=== PATIENT | male | born 1935 | race American Indian/Alaskan Native ===

== ENCOUNTER 2017-10-22 11:42 | Inpatient (IN) | payer MEDICARE ==
--- NOTE | 2017-10-22 12:33 | ED PDOC ---
HPI: Trauma/Fall - HPI Time Seen by Provider: 10/22/17 12:14 Chief Complaint (Nursing): Trauma Chief Complaint (Provider): Fall History Per: Patient History/Exam Limitations: no limitations Onset/Duration Of Symptoms: Days (x1) Injury Occurred (Timing): Just Before Arrival Additional Complaint(s): 82-year-old male presenting for evaluation s/p slip and fall in bathtub prior to arrival. Patient states he does not remember everything that happened, but he does not think he hit his head or suffer LOC. Patient's daughter in law states she called him at 0830 to pick him up for a doctor's appointment. She states she arrived at 0930 and the patient was not answering. She states the patient was found in the bathtube on both his knees and awake. Patient denies any complaints at this time. PMD: Non-[facility] Provider Past Medical History Reviewed: Historical Data, Nursing Documentation, Vital Signs Vital Signs: Last Vital Signs Temp 98.4 F 10/22/17 12:09 Pulse 88 10/22/17 12:11 Resp 18 10/22/17 12:09 BP 115/72 10/22/17 12:09 Pulse Ox 97 10/22/17 12:09 - Medical History PMH: No Chronic Diseases - Surgical History Surgical History: No Surg Hx - Family History Family History: States: Unknown Family Hx - Allergies Allergies/Adverse Reactions: Allergies Allergy/AdvReac Type Severity Reaction Status Date / Time No Known Allergies Allergy Verified 10/22/17 11:58 Review of Systems ROS Statement: Except As Marked, All Systems Reviewed And Found Negative Physical Exam - Reviewed Nursing Documentation Reviewed: Yes Vital Signs Reviewed: Yes - Physical Exam Appears: Positive for: Non-toxic, No Acute Distress Head Exam: Positive for: ATRAUMATIC, NORMAL INSPECTION, NORMOCEPHALIC Skin: Positive for: Normal Color, Warm, Dry. Negative for: Rash Eye Exam: Positive for: EOMI, Normal appearance, PERRL ENT: Positive for: Normal ENT Inspection Neck: Positive for: Normal, Painless ROM, Supple Cardiovascular/Chest: Positive for: Regular Rate, Rhythm. Negative for: Murmur Respiratory: Positive for: Normal Breath Sounds. Negative for: Respiratory Distress Gastrointestinal/Abdominal: Positive for: Normal Exam, Soft. Negative for: Tenderness Back: Positive for: Normal Inspection. Negative for: L CVA Tenderness, R CVA Tenderness, Vertebral Tenderness Extremity: Positive for: Normal ROM, Other (minimal tenderness to bilateral knees, full ROM, no ecchymosis, no deformity). Negative for: Deformity Neurologic/Psych: Positive for: Alert, Oriented (x2). Negative for: Motor/ Sensory Deficits - Laboratory Results Result Diagrams: 10/22/17 13:20 10/22/17 14:20 - ECG O2 Sat by Pulse Oximetry: 97 (RA) Pulse Ox Interpretation: Normal Medical Decision Making Medical Decision Making: Impression: Fall Plan: -CT Head w/o contrast -EKG -Troponin I -Urine dipstick -CBC -PTT/PT -CXR -X-Ray Bilateral Knees -X-Ray Pelvis 2 Views -Urinalysis -Reevaluation 13:17 Knee x-ray FINDINGS: BONES: Right Knee: Normal. No fracture. Left Knee: Normal. No fracture. JOINTS: Right Knee: Tricompartmental osteoarthritis. Lateral compartment chondrocalcinosis. No articular erosion. Left knee: Tricompartmental osteoarthritis. Lateral compartment chondrocalcinosis. No articular erosion. SOFT TISSUES: Right Knee: Normal. Left Knee: Normal. JOINT EFFUSION: Right Knee: None. Left Knee: None. OTHER FINDINGS: None. IMPRESSION: Bilateral tricompartmental osteoarthritis. No fracture. 13:18 Pelvis X-Ray FINDINGS: BONES: Pelvic Bones: Unremarkable. Hips: Grossly unremarkable. JOINTS: Sacroiliac Joints: Unremarkable. Pubic Symphysis: Unremarkable. OTHER FINDINGS: Degenerative disc disease multiple levels in the lower lumbar spine. IMPRESSION: No acute fracture. 13:19 CXR FINDINGS: LUNGS: Clear. PLEURA: No pneumothorax or pleural fluid seen. CARDIOVASCULAR: Normal heart size. Permanent pacemaker. No congestive change. OSSEOUS STRUCTURES: No significant abnormalities. VISUALIZED UPPER ABDOMEN: Normal. OTHER FINDINGS: None. IMPRESSION: No active disease. 14:[address] FINDINGS: HEMORRHAGE: No intracranial hemorrhage. 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 This mass measures roughly 3.0 by 2.2 x 3.7 cm. Nonspecific. Tissue diagnosis advised. Moderate diffuse age- appropriate atrophy. Mild patchy periventricular and deep white matter lucency consistent with chronic microvascular ischemic change. Dense bilateral basal ganglia calcification unchanged from prior examination. VENTRICLES: Unremarkable. No hydrocephalus. CALVARIUM: No fracture. PARANASAL SINUSES: Soft tissue density in anterior left ethmoid sinus may be related to the orbital /frontal sinus mass. Status post left medial antrectomy/uncinectomy. Chronic left maxillary sinusitis. Minimal chronic sphenoid sinusitis. MASTOID AIR CELLS: Unremarkable as visualized. No inflammatory changes. OTHER FINDINGS: None. 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 Atrophy and chronic white matter ischemic change. CT findings noted, [id number] states know mass in orbital region. Scribe Attestation: Documented by Yannick Mattson, acting as a scribe for Lanette Hoang MD. Provider Scribe Attestation: All medical record entries made by the Scribe were at my direction and personally dictated by me. I have reviewed the chart and agree that the record accurately reflects my personal performance of the history, physical exam, medical decision making, and the department course for this patient. I have also personally directed, reviewed, and agree with the discharge instructions and disposition. Disposition - Clinical Impression Clinical Impression: Syncope - Patient ED Disposition Is Patient to be Admitted: Yes - Disposition Disposition Time: 14:40 Condition: STABLE - Pt Status Changed To: Hospital Disposition Of: Observation - POA Present On Arrival: Falls Or Trauma
--- NOTE | 2017-10-22 13:20 | RAD ---
Date of service: 10/22/2017 PROCEDURE: Radiographs of the pelvis. HISTORY: Fall COMPARISON: None. FINDINGS: BONES: Pelvic Bones: Unremarkable. Hips: Grossly unremarkable. JOINTS: Sacroiliac Joints: Unremarkable. Pubic Symphysis: Unremarkable. OTHER FINDINGS: Degenerative disc disease multiple levels in the lower lumbar spine. IMPRESSION: No acute fracture.
--- NOTE | 2017-10-22 13:20 | RAD ---
Date of service: 10/22/2017 PROCEDURE: CHEST RADIOGRAPH, 1 VIEW HISTORY: Fall COMPARISON: 04/18/2010 FINDINGS: LUNGS: Clear. PLEURA: No pneumothorax or pleural fluid seen. CARDIOVASCULAR: Normal heart size. Permanent pacemaker. No congestive change. OSSEOUS STRUCTURES: No significant abnormalities. VISUALIZED UPPER ABDOMEN: Normal. OTHER FINDINGS: None. IMPRESSION: No active disease.
[2017-10-22 13:31] LABS: INR 1.6; PROTHROMBIN TIME 17.4 Seconds (9.8-13.1)
[2017-10-22 13:32] LABS: BASO % 0.5 % (0.0-2.0); EOS % 0.3 % (0.0-4.0); HEMOGLOBIN 12.7 g/dL (12.0-18.0); LYMPH # 0.3 K/uL (1.0-4.3); LYMPH % 4.2 % (20.0-40.0); MEAN CELL VOLUME 89.4 fl (80.0-94.0); MEAN CORPUSCULAR HEMOGLOBIN 29.4 pg (27.0-31.0); MEAN CORPUSCULAR HGB CONC 32.9 g/dL (33.0-37.0); MEAN PLATELET VOLUME 8.6 fl (7.2-11.7); MONO # 0.5 K/uL (0.0-0.8); MONO % 6.4 % (0.0-10.0); NEUT # 6.9 K/uL (1.8-7.0); NEUT % 88.6 % (50.0-75.0); NRBC % 0.1 % (0.0-0.0); PLATELET COUNT 203 K/uL (130-400); RBC 4.31 Mil/uL (4.40-5.90); WHITE BLOOD COUNT 7.8 K/uL (4.8-10.8)
[2017-10-22 13:34] LABS: PARTIAL THROMBOPLASTIN TIME 29.3 Seconds (25.6-37.1)
--- NOTE | 2017-10-22 14:25 | CT ---
Date of service: 10/22/2017 PROCEDURE: CT HEAD WITHOUT CONTRAST. HISTORY: Vertigo COMPARISON: 04/17/2010 TECHNIQUE: Axial computed tomography images were obtained through the head/brain without intravenous contrast. Radiation dose: Total exam DLP = 968.90 mGy-cm. This CT exam was performed using one or more of the following dose reduction techniques: Automated exposure control, adjustment of the mA and/or kV according to patient size, and/or use of iterative reconstruction technique. FINDINGS: HEMORRHAGE: No intracranial hemorrhage. 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 This mass measures roughly 3.0 by 2.2 x 3.7 cm. Nonspecific. Tissue diagnosis advised. Moderate diffuse age-appropriate atrophy. Mild patchy periventricular and deep white matter lucency consistent with chronic microvascular ischemic change. Dense bilateral basal ganglia calcification unchanged from prior examination. VENTRICLES: Unremarkable. No hydrocephalus. CALVARIUM: No fracture. PARANASAL SINUSES: Soft tissue density in anterior left ethmoid sinus may be related to the orbital/frontal sinus mass. Status post left medial antrectomy/uncinectomy. Chronic left maxillary sinusitis. Minimal chronic sphenoid sinusitis. MASTOID AIR CELLS: Unremarkable as visualized. No inflammatory changes. OTHER FINDINGS: None. 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 Atrophy and chronic white matter ischemic change.
[2017-10-22 14:33] LABS: ALB/GLOB RATIO 1.1 (1.0-2.1); ALBUMIN 4.3 g/dL (3.5-5.0); CALCIUM 9.2 mg/dL (8.4-10.2)
--- NOTE | 2017-10-22 14:46 | RAD ---
Date of service: 10/22/2017 PROCEDURE: Bilateral Knee Radiographs. HISTORY: Fall COMPARISON: None. FINDINGS: BONES: Right Knee: Normal. No fracture. Left Knee: Normal. No fracture. JOINTS: Right Knee: Tricompartmental osteoarthritis. Lateral compartment chondrocalcinosis. No articular erosion. Left knee: Tricompartmental osteoarthritis. Lateral compartment chondrocalcinosis. No articular erosion. SOFT TISSUES: Right Knee: Normal. Left Knee: Normal. JOINT EFFUSION: Right Knee: None. Left Knee: None. OTHER FINDINGS: None. IMPRESSION: Bilateral tricompartmental osteoarthritis. No fracture.
[2017-10-22 15:27] LABS: LYMPHOCYTE 6 % (20-50); MONOCYTE 9 % (0-10); NEUTROPHIL 85 % (42-75); PLATELET ESTIMATE NORMAL (NORMAL); TOTAL CELLS COUNTED 100
[2017-10-22 15:31] LABS: URINE BILIRUBIN NEGATIVE (NEGATIVE); URINE BLOOD SMALL (NEGATIVE); URINE CLARITY CLEAR (Clear); URINE COLOR YELLOW (YELLOW); URINE GLUCOSE (UA) 50 mg/dL (Normal); URINE HYALINE CAST 0-2 /hpf (0-2); URINE LEUKOCYTE ESTERASE NEG Leu/uL (Negative); URINE PROTEIN 100 mg/dL (NEGATIVE); URINE UROBILINOGEN 0.2-1.0 mg/dL (0.2-1.0)
[2017-10-22] MEDS: Metoprolol Succinate 100 mg XL Tab PO SCH (17:00)
--- NOTE | 2017-10-23 02:01 | CARD ---
APPROVED REPORT Date of service: 10/22/2017 <Conclusion> Wide QRS rhythm/ Possible accelerated junctional rhythm Right bundle branch block Inferior infarct, age undetermined Abnormal ECG
[2017-10-23 07:33] LABS: HDL CHOLESTEROL 37 MG/DL (30-70)
[2017-10-23 07:57] LABS: LDL CHOLESTEROL < 30 mg/dL (0-129)
[2017-10-23] MEDS: Enoxaparin 40 mg Syringe SC SCH (09:01)
[2017-10-23] MEDS: Metoprolol Succinate 100 mg XL Tab PO SCH (09:04)
[2017-10-23] MEDS: Ammonium Lactate 12% Cream (140 g) TOP SCH ×2 (10:15→19:05)
--- NOTE | 2017-10-23 10:19 | CP.PCM.CON ---
History of Present Illness - History of Present Illness History of Present Illness: Podiatry Consult Note for Dr. Whitten: 82 yo male, with PMHx of DM and HLD, seen and evaluated at bedside for b/l xerosis and dystrophic elongated nails. He notes that he fell in the bath tub yesterday and was brought to the hospital. Patient states that his nails are so long that he cannot cut them himself. They often cause pain in his shoes. He states that he does not see a gumming machine operator. He denies any other pedal complaints at this time. Denies N/V/F/SOB/CP. Review of Systems - Review of Systems Review of Systems: As per HPI Past Patient History - Past Medical History & Family History Past Medical History?: Yes - Past Social History Smoking Status: Never Smoked - CARDIAC Hx Cardiac Disorders: Yes Hx Hypercholesterolemia: Yes Hx Hypertension: Yes Other/Comment: Pacemaker - PULMONARY Hx Respiratory Disorders: No - NEUROLOGICAL Hx Neurological Disorder: No - HEENT Hx HEENT Problems: No - RENAL Hx Chronic Kidney Disease: No - ENDOCRINE/METABOLIC Hx Endocrine Disorders: Yes Hx Diabetes Mellitus Type 2: Yes - HEMATOLOGICAL/ONCOLOGICAL Hx Blood Disorders: No Hx AIDS: No Hx Human Immunodeficiency Virus (HIV): No - INTEGUMENTARY Hx Dermatological Problems: No - MUSCULOSKELETAL/RHEUMATOLOGICAL Hx Musculoskeletal Disorders: Yes Hx Falls: Yes - GASTROINTESTINAL Hx Gastrointestinal Disorders: No - GENITOURINARY/GYNECOLOGICAL Hx Genitourinary Disorders: Yes Other/Comment: scrotal edema - PSYCHIATRIC Hx Psychophysiologic Disorder: No Hx Substance Use: No - SURGICAL HISTORY Hx Surgeries: Yes Other/Comment: Pacemaker insertion - ANESTHESIA Hx Anesthesia: Yes Hx Anesthesia Reactions: No Hx Malignant Hyperthermia: No Has any member of the family had a problem w/ anesthesia?: No Meds Allergies/Adverse Reactions: Allergies Allergy/AdvReac Type Severity Reaction Status Date / Time No Known Allergies Allergy Verified 10/22/17 11:58 - Medications Medications: Current Medications Amlodipine Besylate (Norvasc) 2.5 mg PO DAILY [facility] Last Admin: 10/23/17 09:02 Dose: 2.5 mg Atorvastatin Calcium (Lipitor) 80 mg PO DAILY [facility] Last Admin: 10/23/17 09:02 Dose: 80 mg Doxazosin Mesylate (Cardura) 1 mg PO DAILY [facility] Last Admin: 10/23/17 09:04 Dose: 1 mg Enoxaparin Sodium (Lovenox) 40 mg SC DAILY [facility] PRN Reason: Protocol Last Admin: 10/23/17 09:01 Dose: 40 mg Escitalopram Oxalate (Lexapro) 10 mg PO DAILY [facility] Last Admin: 10/23/17 09:03 Dose: 10 mg Fenofibrate (Tricor) 48 mg PO DAILY [facility] Last Admin: 10/23/17 09:02 Dose: 48 mg Lactic Acid (Lac-Hydrin 12% Cream (140 G)) 0 ea TOP BID [facility] Lisinopril (Zestril) 40 mg PO DAILY [facility] Last Admin: 10/23/17 09:03 Dose: 40 mg Memantine (Namenda) 10 mg PO BID [facility] Last Admin: 10/23/17 09:03 Dose: 10 mg Metoprolol Succinate (Toprol Xl) 200 mg PO DAILY [facility] Last Admin: 10/23/17 09:04 Dose: 200 mg Tamsulosin HCl (Flomax) 0.4 mg PO HS [facility] Last Admin: 10/22/17 21:49 Dose: 0.4 mg Physical Exam - Constitutional Appears: Well, Non-toxic, No Acute Distress - Head Exam Head Exam: ATRAUMATIC, NORMOCEPHALIC - Extremities Exam Additional comments: B/L lower extremity exam: Vascular: DP 2/4 bilaterally, PT 1/4 bilaterally, CFT > 3 seconds to all 10 digits, no edema noted Ortho: Tenderness to palpation of elongated nails, MMT 4/5, hammertoe deformity of 2-4 bilaterally, HAV deformity bilaterally, pes planus bilaterally Neuro: Gross and protective sensation intact Derm: Elongated, dystrophic, onychogryphotic nails x8 with subungual debris. Xerosis noted to lower extremity extending from mid tibia down to dorsal aspect of feet bilterally. No interdigital maceration, no open lesions, no erythema, no clinical signs of infection - Neurological Exam Neurological exam: Alert - Psychiatric Exam Psychiatric exam: Normal Affect, Normal Mood Results - Vital Signs Recent Vital Signs: Last Vital Signs Temp 98.3 F 10/23/17 08:00 Pulse 75 10/23/17 09:04 Resp 20 10/23/17 08:00 BP 141/81 10/23/17 09:04 Pulse Ox 95 10/23/17 08:00 - Labs Result Diagrams: 10/22/17 13:20 10/22/17 14:20 Labs: Laboratory Results - last 24 hr 10/22/17 10/22/17 10/22/17 13:20 13:20 13:20 WBC 7.8 RBC 4.31 L Hgb 12.7 Hct 38.5 MCV 89.4 MCH 29.4 MCHC 32.9 L RDW 14.0 Plt Count 203 MPV 8.6 Neut % (Auto) 88.6 H Lymph % (Auto) 4.2 L [place] % (Auto) 6.4 Eos % (Auto) 0.3 Baso % (Auto) 0.5 Neut # (Auto) 6.9 Lymph # (Auto) 0.3 L [place] # (Auto) 0.5 Eos # (Auto) 0.0 Baso # (Auto) 0.0 Neutrophils % (Manual) 85 H Lymphocytes % (Manual) 6 L Monocytes % (Manual) 9 Platelet Estimate Normal PT 17.4 H INR 1.6 APTT 29.3 Sodium Potassium Chloride Carbon Dioxide Anion Gap BUN Creatinine Est GFR ( Amer) Est GFR (Non-Af Amer) Random Glucose Calcium Total Bilirubin AST ALT Alkaline Phosphatase Troponin I 0.1190 Total Protein Albumin Globulin Albumin/Globulin Ratio Triglycerides Cholesterol LDL Cholesterol Direct HDL Cholesterol TSH 3rd Generation Urine Color Urine Clarity Urine pH Ur Specific [place] Urine Protein Urine Glucose (UA) Urine Ketones Urine Blood Urine Nitrate Urine Bilirubin Urine Urobilinogen Ur Leukocyte Esterase Urine RBC (Auto) Urine Microscopic WBC Hyaline Casts 10/22/17 10/22/17 10/23/17 14:20 15:18 05:50 WBC RBC Hgb Hct MCV MCH MCHC RDW Plt Count MPV Neut % (Auto) Lymph % (Auto) [place] % (Auto) Eos % (Auto) Baso % (Auto) Neut # (Auto) Lymph # (Auto) [place] # (Auto) Eos # (Auto) Baso # (Auto) Neutrophils % (Manual) Lymphocytes % (Manual) Monocytes % (Manual) Platelet Estimate PT INR APTT Sodium 140 Potassium 4.5 Chloride 104 Carbon Dioxide 22 Anion Gap 19 BUN 21 H Creatinine 1.5 Est GFR ( Amer) 54 Est GFR (Non-Af Amer) 45 Random Glucose 121 H Calcium 9.2 Total Bilirubin 1.1 AST 67 H ALT 23 Alkaline Phosphatase 81 Troponin I Total Protein 8.2 Albumin 4.3 Globulin 3.9 Albumin/Globulin Ratio 1.1 Triglycerides 51 Cholesterol 81 LDL Cholesterol Direct < 30 HDL Cholesterol 37 TSH 3rd Generation 2.27 Urine Color Yellow Urine Clarity Clear Urine pH 6.0 Ur Specific [place] 1.016 Urine Protein 100 Urine Glucose (UA) 50 Urine Ketones Trace Urine Blood Small Urine Nitrate Negative Urine Bilirubin Negative Urine Urobilinogen 0.2-1.0 Ur Leukocyte Esterase Neg Urine RBC (Auto) 6 H Urine Microscopic WBC 3 Hyaline Casts 0-2 Assessment & Plan - Assessment and Plan (Free Text) Assessment: 82 yo male, with PMHx of DM and HLD, seen and evaluated at bedside for b/l xerosis and dystrophic elongated nails. Plan: Patient seen and evaluated with all questions and concerns addressed Patient discussed in detail with Dr. Whitten Chart, labs, and vitals reviewed; afebrile, absent leukocytosis Nails debrided x8 with a large nail nipper without incident Ammonium lactate lotion ordered and to be applied daily to bilateral lower extremities Podiatry to s/o at this time Thank you for the consult and allowing us to partake in the care of this patient - Date & Time Date: 10/23/17 Time: 10:19
--- NOTE | 2017-10-23 13:05 | US ---
Date of service: 10/23/2017 HISTORY: scrotal edema TECHNIQUE: Realtime sonography through the scrotum with color and doppler flow. COMPARISON: None Available. FINDINGS: RIGHT TESTICLE: Measures 2.9 x 2.5 x 3.9 cm. Homogeneous echotexture. No mass. Normal flow demonstrated. RIGHT EPIDIDYMIS: Not discretely appreciated. No epididymal mass. LEFT TESTICLE: Measures 4.8 x 2.9 x 3.8 cm. Homogeneous echotexture. No mass. Normal flow. LEFT EPIDIDYMIS: Not discretely appreciated. No epididymal mass. HYDROCELE: Extensive bilateral mildly complex hydrocele with low-level internal echoes. VARICOCELE: None. OTHER FINDINGS: None. IMPRESSION: Extensive bilateral mildly complex hydrocele. No evidence of epididymo-orchitis. Otherwise unremarkable.
--- NOTE | 2017-10-23 20:18 | CP.PCM.HP ---
History of Present Illness - History of Present Illness History of Present Illness: This is an 82 y/o male admitted after a fall with possible syncope. Patient had a fall at home and did not remember the events just prior to the event. He denies chest pain or dizziness prior to fall. Patient does not remember any of his medical conditons. He has been living alone and his immediate family visits him regularly Medical Hx gait dysfunction OA left periorbital mass [place] HTn Hyperlipidemia BPH Dementia Present on Admission - Present on Admission Any Indicators Present on Admission: No History of DVT/PE: No History of Uncontrolled Diabetes: No Urinary Catheter: No Decubitus Ulcer Present: No Review of Systems - Review of Systems Systems not reviewed;Unavailable: Dementia - Constitutional Constitutional: Frequent Falls - Musculoskeletal Musculoskeletal: Abnormal Gait, Arthralgias - Integumentary Integumentary: Change in Nails, Dry Skin Past Patient History - Past Medical History & Family History Past Medical History?: Yes - Past Social History Smoking Status: Never Smoked - CARDIAC Hx Cardiac Disorders: Yes Hx Hypercholesterolemia: Yes Hx Hypertension: Yes Other/Comment: Pacemaker - PULMONARY Hx Respiratory Disorders: No - NEUROLOGICAL Hx Neurological Disorder: No - HEENT Hx HEENT Problems: No - RENAL Hx Chronic Kidney Disease: No - ENDOCRINE/METABOLIC Hx Endocrine Disorders: Yes Hx Diabetes Mellitus Type 2: Yes - HEMATOLOGICAL/ONCOLOGICAL Hx Blood Disorders: No Hx AIDS: No Hx Human Immunodeficiency Virus (HIV): No - INTEGUMENTARY Hx Dermatological Problems: No - MUSCULOSKELETAL/RHEUMATOLOGICAL Hx Musculoskeletal Disorders: Yes Hx Falls: Yes - GASTROINTESTINAL Hx Gastrointestinal Disorders: No - GENITOURINARY/GYNECOLOGICAL Hx Genitourinary Disorders: Yes Other/Comment: scrotal edema - PSYCHIATRIC Hx Psychophysiologic Disorder: No Hx Substance Use: No - SURGICAL HISTORY Hx Surgeries: Yes Other/Comment: Pacemaker insertion - ANESTHESIA Hx Anesthesia: Yes Hx Anesthesia Reactions: No Hx Malignant Hyperthermia: No Has any member of the family had a problem w/ anesthesia?: No Meds Allergies/Adverse Reactions: Allergies Allergy/AdvReac Type Severity Reaction Status Date / Time No Known Allergies Allergy Verified 10/22/17 11:58 Physical Exam - Head Exam Head Exam: NORMAL INSPECTION - Eye Exam Eye Exam: Normal appearance - ENT Exam ENT Exam: Mucous Membranes Moist - Respiratory Exam Respiratory Exam: Clear to Auscultation Bilateral - Cardiovascular Exam Cardiovascular Exam: REGULAR RHYTHM - GI/Abdominal Exam GI & Abdominal Exam: Normal Bowel Sounds - Extremities Exam Additional comments: dry skin and thickened discolored elongated toenails - Neurological Exam Neurological exam: CN II-XII Intact - Psychiatric Exam Psychiatric exam: Flat Affect Results - Vital Signs Recent Vital Signs: Last Vital Signs Temp 98.0 F 10/23/17 17:17 Pulse 87 10/23/17 17:17 Resp 18 10/23/17 17:17 BP 124/87 10/23/17 17:17 Pulse Ox 97 10/23/17 17:17 - Labs Result Diagrams: 10/25/17 04:20 10/25/17 04:20 Labs: Laboratory Results - last 24 hr 10/23/17 10/23/17 05:50 05:50 Hemoglobin A1c 5.6 Triglycerides 51 Cholesterol 81 LDL Cholesterol Direct < 30 HDL Cholesterol 37 TSH 3rd Generation 2.27 Assessment & Plan (1) Syncope Status: Acute (2) Hypertension Status: Acute (3) Hyperlipidemia Status: Acute (4) Dementia Status: Acute (5) Dry skin dermatitis Status: Acute (6) Onychomycosis Status: Acute (7) Gait abnormality Status: Acute (8) Osteoarthritis Status: Acute - Assessment and Plan (Free Text) Plan: keep at telemetry cont meds lachydrin lotion Podiatery eval follow up Ct scan of the brains Phsy therapy
--- NOTE | 2017-10-23 20:21 | CP.PCM.PN ---
Subjective - Date & Time of Evaluation Date of Evaluation: 10/23/17 Time of Evaluation: 15:00 - Subjective Subjective: Patient is much more stable Stays mostly in bed, Seen by Podiatry Very forgetful Has god appetite and sleep Has no SOB or chest pain. Objective - Vital Signs/Intake and Output Vital Signs (last 24 hours): Temp Pulse Resp BP Pulse Ox 98.0 F 87 18 124/87 97 10/23/17 17:17 10/23/17 17:17 10/23/17 17:17 10/23/17 17:17 10/23/17 17:17 - Medications Medications: Current Medications Amlodipine Besylate (Norvasc) 2.5 mg PO DAILY [facility] Last Admin: 10/23/17 09:02 Dose: 2.5 mg Atorvastatin Calcium (Lipitor) 80 mg PO DAILY [facility] Last Admin: 10/23/17 09:02 Dose: 80 mg Doxazosin Mesylate (Cardura) 1 mg PO DAILY [facility] Last Admin: 10/23/17 09:04 Dose: 1 mg Enoxaparin Sodium (Lovenox) 40 mg SC DAILY [facility] PRN Reason: Protocol Last Admin: 10/23/17 09:01 Dose: 40 mg Escitalopram Oxalate (Lexapro) 10 mg PO DAILY [facility] Last Admin: 10/23/17 09:03 Dose: 10 mg Fenofibrate (Tricor) 48 mg PO DAILY [facility] Last Admin: 10/23/17 09:02 Dose: 48 mg Lactic Acid (Lac-Hydrin 12% Cream (140 G)) 0 ea TOP BID [facility] Last Admin: 10/23/17 19:05 Dose: 1 applic Lisinopril (Zestril) 40 mg PO DAILY [facility] Last Admin: 10/23/17 09:03 Dose: 40 mg Memantine (Namenda) 10 mg PO BID [facility] Last Admin: 10/23/17 19:05 Dose: 10 mg Metoprolol Succinate (Toprol Xl) 200 mg PO DAILY [facility] Last Admin: 10/23/17 09:04 Dose: 200 mg Tamsulosin HCl (Flomax) 0.4 mg PO HS [facility] Last Admin: 10/22/17 21:49 Dose: 0.4 mg - Labs Labs: 10/22/17 13:20 10/22/17 14:20 PT 17.4 Seconds (9.8-13.1) H 10/22/17 13:20 INR 1.6 10/22/17 13:20 APTT 29.3 Seconds (25.6-37.1) 10/22/17 13:20 - Head Exam Head Exam: NORMAL INSPECTION - Eye Exam Eye Exam: Normal appearance - ENT Exam ENT Exam: Mucous Membranes Moist - Respiratory Exam Respiratory Exam: Clear to Ausculation Bilateral - Cardiovascular Exam Cardiovascular Exam: REGULAR RHYTHM - GI/Abdominal Exam GI & Abdominal Exam: Normal Bowel Sounds Assessment and Plan (1) Syncope Status: Acute (2) Dementia Status: Acute (3) Dry skin dermatitis Status: Acute (4) Gait abnormality Status: Acute (5) Hyperlipidemia Status: Acute (6) Hypertension Status: Acute (7) Onychomycosis Status: Acute (8) Osteoarthritis Status: Acute - Assessment and Plan (Free Text) Plan: Cont meds Cont PT follow up Ct scan pain meds
[2017-10-24] MEDS: Enoxaparin 40 mg Syringe SC SCH (09:59)
[2017-10-24] MEDS: Omega-3-Acid Ethyl Esters 1 GM Cap PO SCH ×2 (09:59→16:12)
[2017-10-24] MEDS: Ammonium Lactate 12% Cream (140 g) TOP SCH ×2 (09:59→16:10)
[2017-10-24] MEDS: Metoprolol Succinate 100 mg XL Tab PO SCH (10:02)
[2017-10-24 14:26] LABS: HEMOGLOBIN 12.8 g/dL (12.0-18.0); MEAN CELL VOLUME 89.1 fl (80.0-94.0); MEAN CORPUSCULAR HEMOGLOBIN 29.4 pg (27.0-31.0); RBC 4.36 Mil/uL (4.40-5.90); RED CELL DISTRIBUTION WIDTH 13.9 % (11.5-14.5); WHITE BLOOD COUNT 10.9 K/uL (4.8-10.8)
--- NOTE | 2017-10-24 15:41 | CARD ---
APPROVED REPORT Date of service: 10/24/2017 EXAM: Two-dimensional and M-mode echocardiogram with Doppler and color Doppler. Other Information Quality : GoodFairRhythm : Pacemaker INDICATION Syncope 2D DIMENSIONS IVSd2.00 (0.7-1.1cm)LVDd3.40 (3.9-5.9cm) LVOT Diameter2.63 (1.8-2.4cm)PWd1.69 (0.7-1.1cm) IVSs2.16 (0.8-1.2cm)LVDs2.26 (2.5-4.0cm) FS (%) 27.5 %PWs2.25 (0.8-1.2cm) M-Mode DIMENSIONS Left Atrium (MM)5.16 (2.5-4.0cm)IVSd1.52 (0.7-1.1cm) Aortic Root4.00 (2.2-3.7cm)LVDd4.90 (4.0-5.6cm) Aortic Cusp Exc.2.32 (1.5-2.0cm)PWd1.46 (0.7-1.1cm) IVSs1.65 cmFS (%) 35 % LVDs3.18 (2.0-3.8cm)PWs2.48 cm Aortic Valve AoV Peak Vjsfwjgo34.6cm/sAoV VTI15.4cmAO Peak GR.4mmHg LVOT Peak Awkmpicj65.2cm/sLVOT VTI9.75cmAO Mean GR.2mmHg ANGEL (VMAX)1.45fp9RQH (VTI)1.50cm2 Mitral Valve MV E Guevhgrc36.0cm/sMV DECEL BILO990mvIS A Ajclqfnq34.4cm/s MV WKH03bsB/A ratio3.9MVA (PHT)4.36cm2 TDI E/Lateral E'0.0E/Medial E'0.0 Pulmonary Valve PV Peak Awgziiot00.6cm/s Tricuspid Valve TR Peak Nojkufnk668th/sRAP UGXGVLVW68byJwOH Peak Gr.26mmHg IVVZ32kwLu LEFT VENTRICLE The left ventricle is normal size. There is moderate concentric left ventricular hypertrophy. There is moderate global LV systolic dysfunction The Ejection Fraction is 40-45%. No regional wall motion abnormalities noted.. The left ventricular diastolic function is normal. No left ventricle thrombus noted on this study. There is no ventricular septal defect visualized. There is no mass noted in the left ventricle. RIGHT VENTRICLE The right ventricle is normal size. There is normal right ventricular wall thickness. The right ventricular systolic function is normal. No subcostal views to determine if RA pacemaker lead present, but likely is ATRIA The left atrium size is moderately dilated The right atrium size is normal. RA pacemaker lead present AORTIC VALVE The aortic valve is normal in structure. Mild sclerosis Mild aortic regurgitation is present. There is no aortic valvular stenosis. MITRAL VALVE The mitral valve is normal in structure. There is no mitral valve stenosis. There is mild mitral valve regurgitation noted. TRICUSPID VALVE The tricuspid valve is normal in structure. There is mild tricuspid valve regurgitation noted. Mild pulmonary hypertension PULMONIC VALVE The pulmonary valve is normal in structure. There is mild pulmonic valvular regurgitation. GREAT VESSELS The aortic root is mildly dilated The pulmonary artery is normal. The IVC is not seen PERICARDIAL EFFUSION There is no pericardial effusion. <Conclusion> No subcostal views Dilated aortic root with mild insufficiency Mild mitral insufficiency Mild TR/PI with mild pulmonary hypertension Dilated left atrium Moderate LVH Moderate global LV systolic dysfunction Probable right heart pacemaker leads The Ejection Fraction is 40-45%.
[2017-10-24] MEDS: Sodium Chloride 0.9% 1,000 ML IV SCH (17:40)
[2017-10-25 05:48] LABS: HEMOGLOBIN 12.1 g/dL (12.0-18.0); MEAN CELL VOLUME 88.6 fl (80.0-94.0); MEAN CORPUSCULAR HEMOGLOBIN 29.2 pg (27.0-31.0); RBC 4.13 Mil/uL (4.40-5.90); WHITE BLOOD COUNT 11.3 K/uL (4.8-10.8)
[2017-10-25] MEDS: Sodium Chloride 0.9% 1,000 ML IV SCH (06:00)
[2017-10-25 06:02] LABS: ALBUMIN 3.7 g/dL (3.5-5.0); CALCIUM 9.1 mg/dL (8.4-10.2)
[2017-10-25 08:01] VITALS: RESP 20
[2017-10-25] MEDS: Ammonium Lactate 12% Cream (140 g) TOP SCH ×2 (08:59→17:56)
[2017-10-25] MEDS: Omega-3-Acid Ethyl Esters 1 GM Cap PO SCH ×2 (09:00→17:56)
[2017-10-25] MEDS: Enoxaparin 40 mg Syringe SC SCH (09:00)
[2017-10-25] MEDS: Metoprolol Succinate 100 mg XL Tab PO SCH (09:01)
--- NOTE | 2017-10-25 10:47 | CP.PCM.PN ---
Subjective - Date & Time of Evaluation Date of Evaluation: 10/24/17 Time of Evaluation: 11:00 - Subjective Subjective: patient continues to do well Has no chest pain or SOB Afebrile has no fever. 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 Objective - Vital Signs/Intake and Output Vital Signs (last 24 hours): Temp Pulse Resp BP Pulse Ox 98.5 F 88 20 138/78 96 10/25/17 08:00 10/25/17 09:01 10/25/17 08:00 10/25/17 09:01 10/25/17 08:00 - Medications Medications: Current Medications Amlodipine Besylate (Norvasc) 2.5 mg PO DAILY [facility] Last Admin: 10/25/17 09:00 Dose: 2.5 mg Atorvastatin Calcium (Lipitor) 20 mg PO HS [facility] Last Admin: 10/24/17 21:41 Dose: 20 mg Doxazosin Mesylate (Cardura) 1 mg PO DAILY [facility] Last Admin: 10/25/17 09:01 Dose: 1 mg Enoxaparin Sodium (Lovenox) 40 mg SC DAILY [facility] PRN Reason: Protocol Last Admin: 10/25/17 09:00 Dose: 40 mg Escitalopram Oxalate (Lexapro) 10 mg PO DAILY [facility] Last Admin: 10/25/17 09:01 Dose: 10 mg Sodium Chloride (Sodium Chloride 0.9%) 1,000 mls @ 80 mls/hr IV .[id number] [facility] Stop: 10/25/17 17:13 Last Admin: 10/25/17 06:00 Dose: 80 mls/hr Lactic Acid (Lac-Hydrin 12% Cream (140 G)) 0 ea TOP BID [facility] Last Admin: 10/25/17 08:59 Dose: 1 applic Lisinopril (Zestril) 40 mg PO DAILY [facility] Last Admin: 10/25/17 08:59 Dose: 40 mg Memantine (Namenda) 10 mg PO BID [facility] Last Admin: 10/25/17 09:00 Dose: 10 mg Metoprolol Succinate (Toprol Xl) 200 mg PO DAILY [facility] Last Admin: 10/25/17 09:01 Dose: 200 mg Hovzd-2-Xbxm Ethyl Esters (Lovaza) 2 gm PO BID [facility] Last Admin: 10/25/17 09:00 Dose: 2 gm Tamsulosin HCl (Flomax) 0.4 mg PO HS [facility] Last Admin: 10/24/17 21:41 Dose: 0.4 mg - Labs Labs: 10/25/17 04:20 10/25/17 04:20 PT 17.4 Seconds (9.8-13.1) H 10/22/17 13:20 INR 1.6 10/22/17 13:20 APTT 29.3 Seconds (25.6-37.1) 10/22/17 13:20 - Head Exam Head Exam: NORMAL INSPECTION - Eye Exam Eye Exam: Normal appearance - ENT Exam ENT Exam: Mucous Membranes Moist - Respiratory Exam Respiratory Exam: Clear to Ausculation Bilateral - Cardiovascular Exam Cardiovascular Exam: REGULAR RHYTHM - GI/Abdominal Exam GI & Abdominal Exam: Normal Bowel Sounds Assessment and Plan (1) Syncope Status: Acute (2) Dementia Status: Acute (3) Dry skin dermatitis Status: Acute (4) Gait abnormality Status: Acute (5) Hyperlipidemia Status: Acute (6) Hypertension Status: Acute (7) Onychomycosis Status: Acute (8) Osteoarthritis Status: Acute - Assessment and Plan (Free Text) Plan: Cont meds Cont tx Cont PT regular floor
--- NOTE | 2017-10-25 10:48 | CP.PCM.PN ---
Subjective - Date & Time of Evaluation Date of Evaluation: 10/25/17 Time of Evaluation: 10:47 - Subjective Subjective: patient remains stable Has no chest pain or SOB afebrile Objective - Vital Signs/Intake and Output Vital Signs (last 24 hours): Temp Pulse Resp BP Pulse Ox 98.5 F 88 20 138/78 96 10/25/17 08:00 10/25/17 09:01 10/25/17 08:00 10/25/17 09:01 10/25/17 08:00 - Medications Medications: Current Medications Amlodipine Besylate (Norvasc) 2.5 mg PO DAILY [facility] Last Admin: 10/25/17 09:00 Dose: 2.5 mg Atorvastatin Calcium (Lipitor) 20 mg PO HS [facility] Last Admin: 10/24/17 21:41 Dose: 20 mg Doxazosin Mesylate (Cardura) 1 mg PO DAILY [facility] Last Admin: 10/25/17 09:01 Dose: 1 mg Enoxaparin Sodium (Lovenox) 40 mg SC DAILY [facility] PRN Reason: Protocol Last Admin: 10/25/17 09:00 Dose: 40 mg Escitalopram Oxalate (Lexapro) 10 mg PO DAILY [facility] Last Admin: 10/25/17 09:01 Dose: 10 mg Sodium Chloride (Sodium Chloride 0.9%) 1,000 mls @ 80 mls/hr IV .[id number] [facility] Stop: 10/25/17 17:13 Last Admin: 10/25/17 06:00 Dose: 80 mls/hr Lactic Acid (Lac-Hydrin 12% Cream (140 G)) 0 ea TOP BID [facility] Last Admin: 10/25/17 08:59 Dose: 1 applic Lisinopril (Zestril) 40 mg PO DAILY [facility] Last Admin: 10/25/17 08:59 Dose: 40 mg Memantine (Namenda) 10 mg PO BID [facility] Last Admin: 10/25/17 09:00 Dose: 10 mg Metoprolol Succinate (Toprol Xl) 200 mg PO DAILY [facility] Last Admin: 10/25/17 09:01 Dose: 200 mg Sskon-5-Jrvv Ethyl Esters (Lovaza) 2 gm PO BID [facility] Last Admin: 10/25/17 09:00 Dose: 2 gm Tamsulosin HCl (Flomax) 0.4 mg PO HS [facility] Last Admin: 10/24/17 21:41 Dose: 0.4 mg - Labs Labs: 10/25/17 04:20 10/25/17 04:20 PT 17.4 Seconds (9.8-13.1) H 10/22/17 13:20 INR 1.6 10/22/17 13:20 APTT 29.3 Seconds (25.6-37.1) 10/22/17 13:20 Assessment and Plan (1) Syncope Status: Acute (2) Dementia Status: Acute (3) Dry skin dermatitis Status: Acute (4) Gait abnormality Status: Acute (5) Hyperlipidemia Status: Acute (6) Hypertension Status: Acute (7) Onychomycosis Status: Acute (8) Osteoarthritis Status: Acute
--- NOTE | 2017-10-25 12:55 | PQF ---
PROVIDER RESPONSE TEXT: Unable to determine REVIEWER QUERY TEXT: Clarification of Clinical Diagnostic Findings Etiology of Syncope? 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 Atrophy and chronic white matter ischemic change 10/22: Observation order: Admitting diagnosis: Syncope -> Admission to Inpatient Telemetry: Admitting diagnosis: Syncope H and P: This is an 82 y/o male admitted after a fall with possible syncope. Patient had a fall at [facility] and did not remember the events just prior to the event. The patient's Clinical Indicators include: XX Query created by: Rea Pike on 10/24/2017 12:21 PM Electronically signed by: Brain Nelson MD 10/25/2017 12:52 PM
--- NOTE | 2017-10-25 20:27 | CP.PCM.CON ---
History of Present Illness - History of Present Illness History of Present Illness: I was asked to evaluate patient by Dr Nelson. Patient is a 82 year old male with hsitory of bradycardia s/p PPM, HTN who presents with a fall. The patient was in the bathtub at the time. he denies chest pain or dsypnea. Review of Systems - Constitutional Constitutional: absent: As Per HPI, Anorexia, Chills, Daytime Sleepiness, Excessive Sweating, Fatigue, Fever, Frequent Falls, Headache, Increased Appetite , Lethargy, Malaise, Night Sweats, Snoring, Sleep Apnea, Weight Gain, Weight Loss, Weakness, Other - EENT Eyes: absent: As Per HPI, Blind Spots, Blurred Vision, Change in Vision, Decreased Night Vision, Diplopia, Discharge, Dry Eye, Exophthalmos, Floaters, Irritation, Itchy Eyes, Loss of Peripheral Vision, Pain, Photophobia, Requires Corrective Lenses, Sees Flashes, Spots in Vision, Tunnel Vision, Other Visual Disturbances, Loss of Vision, Other Ears: absent: As Per HPI, Decreased Hearing, Ear Discharge, Ear Pain, Tinnitus, Abnormal Hearing, Disequilibrium, Dizziness, Other Nose/Mouth/Throat: absent: As Per HPI, Epistaxis, Nasal Congestion, Nasal Discharge, Nasal Obstruction, Nasal Trauma, Nose Pain, Post Nasal Drip, Sinus Pain, Sinus Pressure, Bleeding Gums, Change in Voice, Dental Pain, Dry Mouth, Dysphagia, Halitosis, Hoarsness, Lip Swelling, Mouth Lesions, Mouth Pain, Odynophagia, Sore Throat, Throat Swelling, Tongue Swelling, Facial Pain, Neck Pain, Neck Mass, Other - Cardiovascular Cardiovascular: Syncope - Respiratory Respiratory: absent: As Per HPI, Cough, Dyspnea, Hemoptysis, Dyspnea on Exertion , Wheezing, Snoring, Stridor, Pain on Inspiration, Chest Congestion, Excessive Mucous Production, Change in Mucous Color, Pain with Coughing, Other - Gastrointestinal Gastrointestinal: absent: As Per HPI, Abdominal Pain, Belching, Bloating, Change in Bowel Habits, Change in Stool Character, Coffee Ground Emesis, Constipation, Cramping, Diarrhea, Dyspepsia, Dysphagia, Early Satiety, Excessive Flatus, Fecal Incontinence, Heartburn, Hematemesis, Hematochezia, Loose Stools, Melena, Nausea, Odynophagia, Temesmus, Vomiting, Other - Genitourinary Genitourinary: absent: As Per HPI, Change in Urinary Stream, Difficulty Urinating, Dysuria, Flank Pain, Hematuria, Pyuria, Nocturia, Urinary Incontinence, Urinary Frequency, Urinary Hesitance, Urinary Urgency, Voiding Freq/Small Amts, Freq UTI, Hx Renal/Bladder Calculi, Hx /Renal Surgery, Bladder Distension, Other - Musculoskeletal Musculoskeletal: absent: As Per HPI, Abnormal Gait, Arthralgias, Atrophy, Back Pain, Deformity, Joint Swelling, Limited Range of Motion, Loss of Height, Muscle Cramps, Muscle Weakness, Myalgias, Neck Pain, Numbness, Radiating Pain into Limb, Stiffness, Tingling, Other - Integumentary Integumentary: absent: As Per HPI, Acne, Alopecia, Bleeding Lesions, Change in Hair, Change in Nails, Change in Pigmentation, Changing Lesions, Dry Skin, Erythema, Furuncle, Hirsutism, Lesions, New Lesions, Non-Healing Lesions, Photosensitivity, Pruritus, Rash, Skin Pain, Skin Ulcer, Sores, Striae, Swelling , Unusual Bruising, Wounds, Jaundice, Other - Neurological Neurological: absent: As Per HPI, Abnormal Gait, Abnormal Hearing, Abnormal Movements, Abnormal Speech, Behavioral Changes, Burning Sensations, Confusion, Convulsions, Disequilibrium, Dizziness, Numbness, Focal Weakness, Frequent Falls , Headaches, Lack of Coordination, Loss of Vision, Memory Loss, Paresthesias, Radicular Pain, Restless Legs, Sensory Deficit, Syncope, Tingling, Tremor, Vertigo, Weakness, Other Visual Disturbances, Other - Psychiatric Psychiatric: absent: As Per HPI, Abnormal Sleep Pattern, Anhedonia, Anxiety, Auditory Hallucinations, Behavioral Changes, Change in Appetite, Change in Libido, Confusion, Depression, Difficulty Concentrating, Hallucinations, Homicidal Ideation, Hopelessness, Irritability, Memory Loss, Mood Swings, Panic Attacks, Paranoia, Suicidal Ideation, Visual Hallucinations, Tactile Hallucinations, Other - Endocrine Endocrine: absent: As Per HPI, Change in Body Appearance, Change in Libido, Cold Intolorance, Deepening of Voice, Excessive Sweating, Fatigue, Flushing, Heat Intolorance, Increase in Ring/Shoe/Hat Size, Palpitations, Polydipsia, Polyphagia, Polyuria, Other - Hematologic/Lymphatic Hematologic: absent: As Per HPI, Easy Bleeding, Easy Bruising, Lymphadenopathy, Other Past Patient History - Past Medical History & Family History Past Medical History?: Yes - Past Social History Smoking Status: Never Smoked - CARDIAC Hx Cardiac Disorders: Yes Hx Hypercholesterolemia: Yes Hx Hypertension: Yes Other/Comment: Pacemaker - PULMONARY Hx Respiratory Disorders: No - NEUROLOGICAL Hx Neurological Disorder: No - HEENT Hx HEENT Problems: No - RENAL Hx Chronic Kidney Disease: No - ENDOCRINE/METABOLIC Hx Endocrine Disorders: Yes Hx Diabetes Mellitus Type 2: Yes - HEMATOLOGICAL/ONCOLOGICAL Hx Blood Disorders: No Hx AIDS: No Hx Human Immunodeficiency Virus (HIV): No - INTEGUMENTARY Hx Dermatological Problems: No - MUSCULOSKELETAL/RHEUMATOLOGICAL Hx Musculoskeletal Disorders: Yes Hx Falls: Yes - GASTROINTESTINAL Hx Gastrointestinal Disorders: No - GENITOURINARY/GYNECOLOGICAL Hx Genitourinary Disorders: Yes Other/Comment: scrotal edema - PSYCHIATRIC Hx Psychophysiologic Disorder: No Hx Substance Use: No - SURGICAL HISTORY Hx Surgeries: Yes Other/Comment: Pacemaker insertion - ANESTHESIA Hx Anesthesia: Yes Hx Anesthesia Reactions: No Hx Malignant Hyperthermia: No Has any member of the family had a problem w/ anesthesia?: No Meds Allergies/Adverse Reactions: Allergies Allergy/AdvReac Type Severity Reaction Status Date / Time No Known Allergies Allergy Verified 10/22/17 11:58 - Medications Medications: Current Medications Amlodipine Besylate (Norvasc) 2.5 mg PO DAILY [facility] Last Admin: 10/25/17 09:00 Dose: 2.5 mg Atorvastatin Calcium (Lipitor) 20 mg PO [facility] Last Admin: 10/24/17 21:41 Dose: 20 mg Doxazosin Mesylate (Cardura) 1 mg PO DAILY [facility] Last Admin: 10/25/17 09:01 Dose: 1 mg Enoxaparin Sodium (Lovenox) 40 mg SC DAILY [facility] PRN Reason: Protocol Last Admin: 10/25/17 09:00 Dose: 40 mg Escitalopram Oxalate (Lexapro) 10 mg PO DAILY [facility] Last Admin: 10/25/17 09:01 Dose: 10 mg Lactic Acid (Lac-Hydrin 12% Cream (140 G)) 0 ea TOP BID [facility] Last Admin: 10/25/17 17:56 Dose: 1 applic Lisinopril (Zestril) 40 mg PO DAILY [facility] Last Admin: 10/25/17 08:59 Dose: 40 mg Memantine (Namenda) 10 mg PO BID [facility] Last Admin: 10/25/17 17:56 Dose: 10 mg Metoprolol Succinate (Toprol Xl) 200 mg PO DAILY [facility] Last Admin: 10/25/17 09:01 Dose: 200 mg Purgi-8-Jrun Ethyl Esters (Lovaza) 2 gm PO BID [facility] Last Admin: 10/25/17 17:56 Dose: 2 gm Tamsulosin HCl (Flomax) 0.4 mg PO HS [facility] Last Admin: 10/24/17 21:41 Dose: 0.4 mg Results - Vital Signs Recent Vital Signs: Last Vital Signs Temp 97.9 F 10/25/17 20:12 Pulse 80 10/25/17 20:12 Resp 20 10/25/17 20:12 BP 166/101 H 10/25/17 20:12 Pulse Ox 97 10/25/17 20:12 - Labs Result Diagrams: 10/25/17 04:20 10/25/17 04:20 Labs: Laboratory Results - last 24 hr 10/25/17 10/25/17 04:20 04:20 WBC 11.3 H RBC 4.13 L Hgb 12.1 Hct 36.6 MCV 88.6 MCH 29.2 MCHC 33.0 RDW 14.0 Plt Count 216 Sodium 139 Potassium 3.6 Chloride 103 Carbon Dioxide 28 Anion Gap 12 BUN 26 H Creatinine 1.6 H Est GFR ( Amer) 51 Est GFR (Non-Af Amer) 42 Random Glucose 160 H Calcium 9.1 Total Bilirubin 1.0 AST 42 ALT 24 Alkaline Phosphatase 70 Total Protein 7.3 Albumin 3.7 Globulin 3.6 Albumin/Globulin Ratio 1.0 - EKG Data EKG Interpreted by: Myself EKG shows normal: Sinus rhythm Assessment & Plan (1) Syncope Assessment and Plan: likely not cardiac. normal pacemaker function on EKG. Normal left vetnricular function. conservative therapy Status: Acute (2) Hypertension Assessment and Plan: blood pressure control Status: Acute
[2017-10-26 08:04] VITALS: O2SAT 98
[2017-10-26 08:35] LABS: HEMOGLOBIN 12.5 g/dL (12.0-18.0); MEAN CELL VOLUME 87.7 fl (80.0-94.0); MEAN CORPUSCULAR HEMOGLOBIN 29.1 pg (27.0-31.0); MEAN CORPUSCULAR HGB CONC 33.2 g/dL (33.0-37.0); RBC 4.28 Mil/uL (4.40-5.90); RED CELL DISTRIBUTION WIDTH 13.9 % (11.5-14.5); WHITE BLOOD COUNT 10.2 K/uL (4.8-10.8)
[2017-10-26 08:57] LABS: BLOOD UREA NITROGEN 20 mg/dl (9-20); GFR AFRICAN-AMERICAN > 60; GFR NON-AFRICAN AMERICAN 58
[2017-10-26] MEDS ORDERED: Potassium Chloride 20 mEq ER Tab PO ONE (08:59)
[2017-10-26] MEDS: Ammonium Lactate 12% Cream (140 g) TOP SCH (09:24)
[2017-10-26] MEDS: Enoxaparin 40 mg Syringe SC SCH (09:28)
[2017-10-26] MEDS: Omega-3-Acid Ethyl Esters 1 GM Cap PO SCH (09:29)
[2017-10-26] MEDS: Metoprolol Succinate 100 mg XL Tab PO SCH (09:29)
[2017-10-26 12:29] VITALS: BP 113/82; PULSE 74; TEMP 97.8
--- NOTE | 2017-10-26 15:07 | CP.PCM.DIS ---
Provider - Provider Date of Admission: 10/22/17 18:08 Attending physician: Brain Nelson MD Consults: Cardiology: Dr Montoya Urology: Dr Tapia Podiatry: Dr Lucas Time Spent in preparation of Discharge (in minutes): 35 Diagnosis - Discharge Diagnosis (1) Syncope Status: Acute Comment: -S/P Fall. D/C to subacute rehabilitation facility. -Physical therapy recommended. (2) Dementia Status: Acute (3) Hyperlipidemia Status: Acute (4) Hypertension Status: Acute Hospital Course - Lab Results Lab Results: Micro Results 10/25/17 11:12 Blood Blood Culture - Preliminary NO GROWTH AFTER 24 HOURS Most Recent Lab Values WBC 10.2 K/uL (4.8-10.8) 10/26/17 08:26 RBC 4.28 Mil/uL (4.40-5.90) L 10/26/17 08:26 Hgb 12.5 g/dL (12.0-18.0) 10/26/17 08:26 Hct 37.5 % (35.0-51.0) 10/26/17 08:26 MCV 87.7 fl (80.0-94.0) 10/26/17 08:26 MCH 29.1 pg (27.0-31.0) 10/26/17 08:26 MCHC 33.2 g/dL (33.0-37.0) 10/26/17 08:26 RDW 13.9 % (11.5-14.5) 10/26/17 08:26 Plt Count 243 K/uL (130-400) 10/26/17 08:26 MPV 8.6 fl (7.2-11.7) 10/22/17 13:20 Neut % (Auto) 88.6 % (50.0-75.0) H 10/22/17 13:20 Lymph % (Auto) 4.2 % (20.0-40.0) L 10/22/17 13:20 [place] % (Auto) 6.4 % (0.0-10.0) 10/22/17 13:20 Eos % (Auto) 0.3 % (0.0-4.0) 10/22/17 13:20 Baso % (Auto) 0.5 % (0.0-2.0) 10/22/17 13:20 Neut # (Auto) 6.9 K/uL (1.8-7.0) 10/22/17 13:20 Lymph # (Auto) 0.3 K/uL (1.0-4.3) L 10/22/17 13:20 [place] # (Auto) 0.5 K/uL (0.0-0.8) 10/22/17 13:20 Eos # (Auto) 0.0 K/uL (0.0-0.7) 10/22/17 13:20 Baso # (Auto) 0.0 K/uL (0.0-0.2) 10/22/17 13:20 Neutrophils % (Manual) 85 % (42-75) H 10/22/17 13:20 Lymphocytes % (Manual) 6 % (20-50) L 10/22/17 13:20 Monocytes % (Manual) 9 % (0-10) 10/22/17 13:20 Platelet Estimate Normal (NORMAL) 10/22/17 13:20 PT 17.4 Seconds (9.8-13.1) H 10/22/17 13:20 INR 1.6 10/22/17 13:20 APTT 29.3 Seconds (25.6-37.1) 10/22/17 13:20 Sodium 142 mmol/l (132-148) 10/26/17 08:26 Potassium 3.4 MMOL/L (3.6-5.0) L 10/26/17 08:26 Chloride 109 mmol/L (98-107) H 10/26/17 08:26 Carbon Dioxide 27 mmol/L (22-30) 10/26/17 08:26 Anion Gap 9 (10-20) L 10/26/17 08:26 BUN 20 mg/dl (9-20) 10/26/17 08:26 Creatinine 1.2 mg/dl (0.8-1.5) 10/26/17 08:26 Est GFR ( Amer) > 60 10/26/17 08:26 Est GFR (Non-Af Amer) 58 10/26/17 08:26 POC Glucose (mg/dL) 137 mg/dL (65-110) H 10/22/17 12:33 Random Glucose 167 mg/dL (75-110) H 10/26/17 08:26 Hemoglobin A1c 5.6 % (4.2-6.5) 10/23/17 05:50 Calcium 9.0 mg/dL (8.4-10.2) 10/26/17 08:26 Phosphorus 3.0 mg/dl (2.5-4.5) 10/24/17 13:26 Magnesium 2.1 MG/DL (1.6-2.3) 10/24/17 13:26 Total Bilirubin 1.0 mg/dl (0.2-1.3) 10/25/17 04:20 AST 42 U/L (17-59) 10/25/17 04:20 ALT 24 U/L (21-72) 10/25/17 04:20 Alkaline Phosphatase 70 U/L (38-126) 10/25/17 04:20 Troponin I 0.1190 ng/mL (0.00-0.120) 10/22/17 13:20 Total Protein 7.3 G/DL (6.3-8.2) 10/25/17 04:20 Albumin 3.7 g/dL (3.5-5.0) 10/25/17 04:20 Globulin 3.6 gm/dL (2.2-3.9) 10/25/17 04:20 Albumin/Globulin Ratio 1.0 (1.0-2.1) 10/25/17 04:20 Triglycerides 51 mg/DL (0-149) 10/23/17 05:50 Cholesterol 81 mg/dL (0-199) 10/23/17 05:50 LDL Cholesterol Direct < 30 mg/dL (0-129) 10/23/17 05:50 HDL Cholesterol 37 MG/DL (30-70) 10/23/17 05:50 TSH 3rd Generation 2.27 mIU/ML (0.46-4.68) 10/23/17 05:50 Urine Color Yellow (YELLOW) 10/22/17 15:18 Urine Clarity Clear (Clear) 10/22/17 15:18 Urine pH 6.0 (5.0-8.0) 10/22/17 15:18 Ur Specific [place] 1.016 (1.003-1.030) 10/22/17 15:18 Urine Protein 100 mg/dL (NEGATIVE) 10/22/17 15:18 Urine Glucose (UA) 50 mg/dL (Normal) 10/22/17 15:18 Urine Ketones Trace mg/dL (NEGATIVE) 10/22/17 15:18 Urine Blood Small (NEGATIVE) 10/22/17 15:18 Urine Nitrate Negative (NEGATIVE) 10/22/17 15:18 Urine Bilirubin Negative (NEGATIVE) 10/22/17 15:18 Urine Urobilinogen 0.2-1.0 mg/dL (0.2-1.0) 10/22/17 15:18 Ur Leukocyte Esterase Neg Alexis/uL (Negative) 10/22/17 15:18 Urine RBC (Auto) 6 /hpf (0-3) H 10/22/17 15:18 Urine Microscopic WBC 3 /hpf (0-5) 10/22/17 15:18 Hyaline Casts 0-2 /hpf (0-2) 10/22/17 15:18 - Hospital Course Hospital Course: 82 y/o M with a PMHx of HTN, HLD, hydrocele and dementia was admitted for evaluation and management after having a fall, most possible syncopal episode. -CT Head with no acute changes but L orbital mass with bony remodeling. EKG unremarkable, Echocardiogram: moderate LVH, EF 40-45%, mild TR/PI w/ mild pulm HTN. -As per softball player: syncope likely not cardiac, normal pacemaker function. conservative management recommended. -Today, pt reported feeling well, was eating, afebrile and stable. Decision was made for discharging patient to subacute rehabilitation and complete physical therapy. - Date & Time of H&P Date of H&P: 10/22/17 Time of H&P: 15:10 Discharge Exam - Head Exam Head Exam: NORMAL INSPECTION - Eye Exam Eye Exam: EOMI - ENT Exam ENT Exam: Mucous Membranes Moist - Neck Exam Neck exam: Full Rom - Respiratory Exam Respiratory Exam: NORMAL BREATHING PATTERN, UNREMARKABLE - Cardiovascular Exam Cardiovascular Exam: +S1, +S2 - GI/Abdominal Exam GI & Abdominal Exam: Soft. absent: Guarding, Tenderness - Neurological Exam Neurological exam: Alert Discharge Plan - Discharge Medications Prescriptions: Rjaeb-1-Pbbc Ethyl Esters 1 GM [Lovaza] 2 gm PO BID #30 sgl - Follow Up Plan Condition: STABLE Disposition: Trans to Other Acute Care Hosp
== END 2017-10-26 14:59 | DRG 312 ==
LOC: H.ER 11:42 → H.ERHOLD 14:40 → EDBD 14:40 → INTOOBSV 14:40 → OBSVTOIN 14:40 → UNDOADMOB 14:40 → H.ERHOLD 15:54 → H.TEL 15:54 → H.ERHOLD 18:08 → H.TEL 18:08 → OBSVTOIN 18:08
PROVIDERS: ADMIT Family Medicine; ATTEND Family Medicine
PROC: 0HBRXZZ Excision of Toe Nail, External Approach (ICD-10-PCS; principal; 2017-10-23)
PROC: 0HBRXZZ Excision of Toe Nail, External Approach (ICD-10-PCS; 2017-10-23)
PROC: 0HBRXZZ Excision of Toe Nail, External Approach (ICD-10-PCS; 2017-10-23)
PROC: 0HBRXZZ Excision of Toe Nail, External Approach (ICD-10-PCS; 2017-10-23)
PROC: 0HBRXZZ Excision of Toe Nail, External Approach (ICD-10-PCS; 2017-10-23)
PROC: 0HBRXZZ Excision of Toe Nail, External Approach (ICD-10-PCS; 2017-10-23)
PROC: 0HBRXZZ Excision of Toe Nail, External Approach (ICD-10-PCS; 2017-10-23)
PROC: 0HBRXZZ Excision of Toe Nail, External Approach (ICD-10-PCS; 2017-10-23)
DX: R55 Syncope and collapse (principal); R26.89 Other abnormalities of gait and mobility; L85.3 Xerosis cutis; I10 Essential (primary) hypertension; F03.90 Unspecified dementia, unspecified severity, without behavioral disturbance, psychotic disturbance, mood disturbance, and anxiety; B35.1 Tinea unguium; I27.20 Pulmonary hypertension, unspecified; M17.0 Bilateral primary osteoarthritis of knee; L60.3 Nail dystrophy; E11.9 Type 2 diabetes mellitus without complications; E78.5 Hyperlipidemia, unspecified; E78.00 Pure hypercholesterolemia, unspecified; N40.0 Benign prostatic hyperplasia without lower urinary tract symptoms; N50.89 Other specified disorders of the male genital organs; Z95.0 Presence of cardiac pacemaker; Z91.81 History of falling